=== PATIENT | male | born 1985 | race Hispanic/Latino ===

== ENCOUNTER → 2017-03-27 | Outpatient (CLI) | payer OTHER ==
[~2017-03-27] MED LIST: IOPAMIDOL 370 MG/ML 200 ML INFUS..BTL INJ ONE; SODIUM CHLORIDE 0.9% 50ML 50 ML ONE
[2017-03-27 18:30] LABS: BLOOD UREA NITROGEN 11 mg/dL (7-26); BUN/CREATININE RATIO 11 (6-25); CREATININE, SERUM 1.02 mg/dL (0.72-1.25); EST GLOMERULAR FILTRATION RATE > 60 ML/MIN (60-)
--- NOTE | 2017-03-27 19:12 | Diagnostic Imaging Report ---
CT chest pulmonary embolism protocol CPT code: 59432 INDICATION: Mid chest pain TECHNIQUE: Thin collimation axial images obtained through the level of the pulmonary arteries with additional imaging through the chest following the uneventful administration of 100 cc of low osmolar, nonionic intravenous contrast. Images reconstructed into coronal and sagittal MIPs for complete evaluation of the tortuous and overlapping pulmonary vascular structures and to reduce patient radiation dose. RADIATION DOSE: Total DLP: 568 mGy*cm Estimated effective dose: (DLP x 0.015 x size factor) mSv CTDIvol has been reviewed. It is below the limits set by the Radiation Protocol Committee (RPC). COMPARISON: None. FINDINGS: Pulmonary artery: No filling defects are appreciated within the main, left, right, lobar or visualized segmental pulmonary arteries to suggest embolism. The main pulmonary artery measures 2.6 cm in diameter. Aorta: The thoracic aorta is not aneurysmal. No evidence for dissection. Lymph nodes: No enlarged axillary, supraclavicular or hilar lymph nodes. A subcarinal lymph node measures 12 mm.. Thyroid: Normal in size without mass in the visualized parenchyma.. Mediastinum: The heart is mildly enlarged with prominence pericardial fat pads. No pericardial effusion. The esophagus is normal. Lungs: Right Lung: No mass or infiltrate. Mild air trapping is present at the base of the lung. Left Lung: Small amount of subsegmental atelectasis in the anterior basal segment of the lower lobe. No infiltrate or mass. There is mild air trapping in the base of the lower lobe. Pleura: No pleural effusion or pleural based mass.. Abdomen: Visualized portions of the upper abdomen demonstrate no abnormality. Bones: No focal osseous lesions. IMPRESSION: 1. No evidence of pulmonary embolus or aortic dissection. 2. Mildly prominent and nonspecific subcarinal lymph node. 3. Mild air trapping suggestive of small airways disease. No evidence of infiltrate. 4. Mild cardiomegaly. No vascular congestion. Signed by: Dr. Clay Teixeira MD on 03/27/2017 7:08 PM
== END ==
LOC: CT 17:35
PROVIDERS: ATTEND Internal Medicine Interventional Cardiology
DX: R07.9 Chest pain, unspecified (principal)
CPT/HCPCS: 36415; 71260; 82565; 84520; Q9967